=== PATIENT | male | born 1980 | race Caucasian/White ===

== ENCOUNTER → 2017-04-13 | Outpatient (CLI) | payer OTHER ==
--- NOTE | 2017-04-13 16:41 | RADIOLOGY IMAGING REPORT ---
FACILITY: [facility] PATIENT NAME: Kike Johns : 1980 MR: [id number] V: [id number] EXAM DATE: ORDERING PHYSICIAN: DAVID HATHAWAY TECHNOLOGIST: Location: [facility] [place] Patient: Kike Johns : 1980 Visit/Account:[id number] Date of Sevice: 04/13/2017 TESTICULAR HISTORY: Pain and lump in right testes COMPARISON: None. FINDINGS: Testes: Right testicle measures 5.2 x 2.9 x 3.90 METs. Left testicle measures 5.1 x 2.7 x 3.5 cm. S ymmetric and unremarkable blood flow documented by color and Duplex Doppler ultrasound. Epididymides: The head epididymis on the right measures 1.2 cm there is an 8 mm cystic area seen at t he junction of the body and tail the epididymis on the right. Head epididymis on the left measures 0.6 cm. Is a 4 mm cyst in the head epididymis on the left Bloo d flow is unremarkable in each epididymis by color Doppler ultrasound. Hydrocele: None. Varicocele: None. IMPRESSION: There is an 8 mm cystic area seen in the junction of body and tail of the epididymis on the right whi ch may account for patient's clinical findings. 4 mm cyst had epididymis on the left Report Dictated By: Wen Oliveira MD at 04/13/2017 4:35 PM Report E-Signed By: Wen Oliveira MD at 04/13/2017 4:38 PM WSN:[email or web address]
== END ==
LOC: US 14:48
PROVIDERS: ATTEND Family Medicine
DX: N50.3 Cyst of epididymis (principal)
CPT/HCPCS: 76870

== ENCOUNTER 2017-12-30 23:37 | Emergency (ER) | payer OTHER ==
[2017-12-30 23:41] VITALS: BP 129/85
--- NOTE | 2017-12-30 23:46 | ER Report ---
History and Physical Time Seen By MD: 23:40 HPI/ROS CHIEF COMPLAINT: Fall, scalp laceration HISTORY OF PRESENT ILLNESS: 37 year-old male presents via EMS with gross bleeding from his scalp. He fell backwards into a plate glass window cutting his scalp. Brought in by EMS in C-spine precautions. Patient appears grossly alcohol intoxicated. He responds to his name and answers most questions with yes. He has slow affect REVIEW OF SYSTEMS: Respiratory: No cough, no dyspnea. Cardiovascular: No chest pain, no palpitations. Gastrointestinal: No vomiting, no abdominal pain. Musculoskeletal: No back pain. Allergies: Coded Allergies: No Known Drug Allergies (Unverified , 12/30/17) Home Meds No Active Prescriptions or Reported Meds Unable To Obtain Past Medical: Unable to Obtain/Update Constitutional Vital Sign - Last 24 Hours 12/30/17 12/30/17 12/30/17 12/31/17 23:40 23:41 23:52 00:07 Temp 97.9 Pulse 88 79 Resp 20 B/P (MAP) 129/85 129/85 (100) Pulse Ox 97 95 98 O2 Delivery Room Air 12/31/17 12/31/17 12/31/17 12/31/17 00:22 00:37 00:52 01:07 Pulse 81 77 81 Pulse Ox 98 97 99 12/31/17 01:22 Pulse 58 Pulse Ox 96 Physical Exam General Appearance: The patient is alert, has no immediate need for airway protection and no current signs of toxicity. Vital signs stable, afebrile, pulse ox normal HEENT: Pupils equal and round no injection. TMs normal, oropharynx without dental trauma Respiratory: Chest is non tender, lungs are clear to auscultation. Cardiac: regular rate and rhythm Gastrointestinal: Abdomen is soft and non tender, no masses, bowel sounds normal. Musculoskeletal: Neck: Neck is supple and non tender. Extremities have full range of motion and are non tender. Skin: No rashes or lesions. DIFFERENTIAL DIAGNOSIS: After history and physical exam differential diagnosis was considered for head injury including but not limited to concussion, skull fracture, intraparenchymal contusion, subarachnoid, subdural and epidural hematoma. Medical Decision Making Data Points Laboratory Hematology Test 12/30/17 23:30 Serum Alcohol 374 mg/dl Chemistry Test 12/30/17 23:30 Serum Alcohol 374 mg/dl Toxicology Test 12/30/17 23:30 Serum Alcohol 374 mg/dl EKG/Imaging Imaging Results: CT scan of the without contrast was obtained. The results of the study are no acute findings. The study was read by the radiologist. I viewed the images myself on the PACS system. Results: CT scan of the C-spine without contrast was obtained. The results of the study are no acute findings. The study was read by the radiologist. I viewed the images myself on the PACS system. ED Course/Re-evaluation ED Course Patient was admitted to an examination room. H&P was done. The differential diagnoses was considered. On clinical examination, patient is grossly intoxicated. He fell and sustained a large scalp laceration on the parietal area of his scalp. It's primarily in the right portion. It does extend over to the left side of the scalp. It 8 cm long. EMS placed a clamp on it to contain the bleeding. Patient was given a tetanus booster since she is too intoxicated to verify whether he has a tetanus in the last 10 years. Patient was sent for head CT and a neck CT to rule out potential occult injury. Patient was maintained in the c-collar. Patient had CT scans which were unremarkable. His collar was removed. His laceration was repaired as noted below. He was rele ased to his to go home to sober up. 12/31/2017 12:29:08 am Procedure: Laceration repair. Verbal consent was obtained from the patient. The 8.0 cm laceration on the right parietal scalp was anesthetized in the usual fashion. The wound was scrubbed, draped and explored to its base with a gloved finger. There were no deep structures involved. The wound was repaired with 22 aby. The wound repair was simple. The procedure was performed by myself. Wound care was discussed Decision to Disposition Date: Dec 30, 2017 Decision to Disposition Time: 23:53 Depart Departure Latest Vital Signs Vital Signs Date Time Temp Pulse Resp B/P (MAP) Pulse Ox O2 Delivery O2 Flow Rate FiO2 12/31/17 01:22 58 96 12/30/17 23:41 129/85 (100) 12/30/17 23:40 97.9 20 Room Air Impression: Primary Impression: Alcohol intoxication Additional Impression: Scalp laceration Condition: Improved Disposition: HOME OR SELF-CARE Referrals: DAVID HATHAWAY MD (PCP) New Scripts No Active Prescriptions or Reported Meds Patient Instructions: Head Injury (ED), Laceration (ED) Additional Instructions: Stop drinking alcohol to excess Have your aby removed in 2 weeks Problem Qualifiers Primary Impression: Alcohol intoxication Complication of substance-induced condition: uncomplicated Qualified Codes: F10.920 - Alcohol use, unspecified with intoxication, uncomplicated Additional Impression: Scalp laceration Encounter type: initial encounter Qualified Codes: S01.01XA - Laceration without foreign body of scalp, initial encounter DAVID EARL DO Dec 30, 2017 23:46
[2017-12-30] MEDS ORDERED: DIPHTH/TETANUS/ACEL. PERTUSSIS IM ONLY ONE (23:50)
--- NOTE | 2017-12-31 01:17 | RADIOLOGY IMAGING REPORT ---
FACILITY: [facility] - [place] PATIENT NAME: Kike Johns : 1980 MR: [id number] V: [id number] EXAM DATE: ORDERING PHYSICIAN: DAVID EARL TECHNOLOGIST: Location: [facility] Patient: Kike Johns : 1980 Visit/Account:[id number] Date of Sevice: 12/30/2017 HEAD W/O CONTRAST History: fall head injury TECHNIQUE: Contiguous angled axial images were obtained from the vertex through the base of the sku ll without intravenous contrast. One of the following dose optimization techniques was utilized in th e performance of this exam: Automated exposure control; adjustment of the mA and/or kV according to t he patient's size; or use of an iterative reconstruction technique. Specific details can be referen higinio in the facility's radiology CT exam operational policy. COMPARISON STUDIES: none FINDINGS: This is a limited study as patient was unable to follow commands and remain still. There is significant motion artifact. Ventricles / sulci / fissures: Grossly negative Masses / hemorrhage / midline shift: Negative. Intra-axial findings: Normal. Extra-axial fluid collections: Negative. Intracranial vasculature and dural sinuses: Negative. Skull base / calvarium: Negative. Scalp: There is a device with prongs impaled into the scalp. There is a scalp laceration seen over the vertex with air in soft tissues and soft tissue swelling. Visualized mastoid air cells / paranasal sinuses: Well aerated. Orbits: Negative IMPRESSION: This is a very limited study as discussed above. There is significant motion artifact. There is device with multiple prongs impaled in the scalp over the vertex. Soft tissue swelling and air in the scalp soft tissues. No intracranial pathology identified. Recommend repeat exam when patient is able to remain still Report Dictated By: Keith Massey MD at 12/31/2017 1:02 AM Report E-Signed By: Keith Massey MD at 12/31/2017 1:12 AM WSN:[id number]
--- NOTE | 2017-12-31 01:17 | RADIOLOGY IMAGING REPORT ---
FACILITY: [facility] - [place] PATIENT NAME: Kike Johns : 1980 MR: [id number] V: [id number] EXAM DATE: ORDERING PHYSICIAN: DAVID EARL TECHNOLOGIST: Location: [facility] [place] Patient: Kike Johns : 1980 Visit/Account:[id number] Date of Sevice: 12/30/2017 C-SPINE W/O CONTRAST History: fall head injury COMPARISON STUDIES: none TECHNIQUE: Contiguous axial images were obtained from the skull base through the upper thoracic spin e without IV contrast administration. Coronal and sagittal reformatted images were obtained from the axial source data. One of the following dose optimization techniques was utilized in the performance of this exam: Automated exposure control; adjustment of the mA and/or kV according to the patient's s ize; or use of an iterative reconstruction technique. Specific details can be referenced in the [facility]'s radiology CT exam operational policy. FINDINGS: Alignment: Cervical spine is aligned. No evidence of subluxation. Vertebral bodies: Osseous structures intact. No evidence of fracture. Discs: Negative. Disc space height well-maintained. Para-vertebral soft tissues: negative Visualized lung / mediastinum: Visualized lung parenchyma normal. No evidence of pneumothorax. IMPRESSION: Normal study. No evidence of acute trauma. Report Dictated By: Keith Massey MD at 12/31/2017 1:12 AM Report E-Signed By: Keith Massey MD at 12/31/2017 1:13 AM WSN:[id number]
== END 2017-12-31 01:57 | disposition home or self-care (01) ==
LOC: ER 23:47
DX: S01.01XA Laceration without foreign body of scalp, initial encounter (principal); F10.920 Alcohol use, unspecified with intoxication, uncomplicated; W13.4XXA Fall from, out of or through window, initial encounter
CPT/HCPCS: 70450; 72125; 80320; 90471; 90715; 99284

== ENCOUNTER → 2017-12-30 | Outpatient (CLI) | payer OTHER | LOC: AMB 23:24 | PROVIDERS: ATTEND Nurse Practitioner | DX: S01.01XA Laceration without foreign body of scalp, initial encounter (principal); R41.82 Altered mental status, unspecified | CPT/HCPCS: A0425; A0429 ==